=== PATIENT | female | born 1985 | race Caucasian/White ===

== ENCOUNTER 2023-01-05 12:00 | Emergency (ER) | payer BC ==
[~2023-01-05] VITALS: Ht 157.5 cm; Wt 89.8 kg
[~2023-01-05 12:00] MED LIST: ALBU90OI INH; ALBU90OI61 INH; AMOX500 PO; AZIT250 PO; BENZ100A PO; CEPH500 PO; CETYLOZ PO; CODGUAEL PO; CYCL10 PO; ERYT.5TO OS; FAMO40 PO; HYDACE5 PO; IBUP600 PO; IBUP800 PO; MOMENI; NAPR500 PO; NAPR550 PO; NUVARING; ONDA4 PO; ONDA8ODT MM; PHENA200 PO; PRED10 PO; PRED20 PO; PROM25 PO; PSEU120ER PO; RXCODGUASY PO; RXONDA4ODT MM; SULTRIDS PO
[2023-01-05] MEDS ORDERED: DULO60 PO (12:18)
[2023-01-05 13:04] LABS: Source, Urine Clean Catch
[2023-01-05 13:08] LABS: BASOPHILS ABSOLUTE AUTO 0.02 K/mm3 (0.00-0.23); BASOPHILS PERCENT AUTO 0 % (0-2); EOSINOPHILS ABSOLUTE AUTO 0.04 K/mm3 (0.00-0.68); EOSINOPHILS PERCENT AUTO 1 % (0-6); Hematocrit 36.2 % (33.0-51.0); Hemoglobin 12.8 g/dL (11.5-16.0); IMMATURE GRAN ABSOLUTE AUTO 0.03 K/mm3 (0.00-0.10); IMMATURE GRAN PERCENT AUTO 0 % (0-1); LYMPHOCYTES ABSOLUTE AUTO 2.01 K/mm3 (0.84-5.20); LYMPHOCYTES PERCENT AUTO 23 % (21-46); MONOCYTES ABSOLUTE AUTO 0.57 K/mm3 (0.16-1.47); MONOCYTES PERCENT AUTO 7 % (4-13); Mean Corpuscular HGB 32.7 pg (26.0-34.0); Mean Corpuscular HGB Conc 35.4 g/dL (31.5-36.5); Mean Corpuscular Volume 92 fL (80-100); NEUTROPHILS ABSOLUTE AUTO 5.93 K/mm3 (1.96-9.15); NEUTROPHILS PERCENT AUTO 69 % (41-73); RDW Coefficient Variation 11.6 % (11.7-14.2); RDW Standard Deviation 39.3 fL (35.1-46.3); Red Blood Cell Count 3.92 M/mm3 (3.80-5.20)
[2023-01-05 13:14] LABS: Mean Platelet Volume 10.7 fL (9.1-12.4); Platelet Count 243 K/mm3 (150-400)
[2023-01-05 13:18] LABS: Bilirubin, Urine Neg (Neg); Blood, Urine 5+ (Neg); Color, Urine Yellow (P-Yellow); Glucose Qualitative, Urine Neg (Neg); Ketones, Urine Neg (Neg); Leukocyte Esterase, Urine Neg (Neg); Nitrite, Urine Neg (Neg); Protein, Urine 1+ (Neg); Specific Gravity, Urine 1.015 (1.003-1.022); Urobilinogen, Urine NORM (Normal)
[2023-01-05 13:22] LABS: Albumin/Globulin Ratio 1.1 (0.8-1.8); Bilirubin, Total 0.6 mg/dL (0.1-1.0); Bun/Creatinine Ratio 15.9 (12.0-20.0); Calcium, Blood 8.8 mg/dL (8.5-10.1); Creatinine, Blood 0.5 mg/dL (0.40-1.00); Globulin, Blood 3.5 g/dL (2.2-4.0); Potassium, Blood 3.7 mmol/L (3.5-5.5); Total Protein, Blood 7.5 g/dL (6.4-8.2)
[2023-01-05 13:38] LABS: Appearance, Urine Hazy (Clear)
[2023-01-05 13:39] LABS: Bacteria Rare /hpf; Squamous Epithelial Cells Few /hpf (Few); White Blood Cells, Urine Not Seen /hpf (0-5)
== END 2023-01-05 14:35 | disposition home or self-care (01) ==
LOC: ER 12:00
PROVIDERS: Physician Assistant
DX: O03.9 Complete or unspecified spontaneous abortion without complication (principal); Z88.5 Allergy status to narcotic agent; Z79.899 Other long term (current) drug therapy
CPT/HCPCS: 36415; 76801; 76817; 80053; 81001; 84702; 85025; 86900; 86901

== ENCOUNTER 2023-01-16 06:07 | Day surgery (SDC) | payer BC ==
[~2023-01-16] VITALS: Ht 160 cm; Wt 91.2 kg
[~2023-01-16 06:07] MED LIST changes: +Atarax10 MG PO; +DULO60 PO
[2023-01-16] MEDS ORDERED: DOXYCYCLINE HY200 MG PO (06:56)
[2023-01-16 10:34] LABS: BASOPHILS ABSOLUTE AUTO 0.02 K/mm3 (0.00-0.23); BASOPHILS PERCENT AUTO 0 % (0-2); EOSINOPHILS ABSOLUTE AUTO 0.02 K/mm3 (0.00-0.68); EOSINOPHILS PERCENT AUTO 0 % (0-6); Hematocrit 29.5 % (33.0-51.0); Hemoglobin 10.3 g/dL (11.5-16.0); IMMATURE GRAN ABSOLUTE AUTO 0.07 K/mm3 (0.00-0.10); IMMATURE GRAN PERCENT AUTO 1 % (0-1); LYMPHOCYTES ABSOLUTE AUTO 0.74 K/mm3 (0.84-5.20); LYMPHOCYTES PERCENT AUTO 6 % (21-46); MONOCYTES PERCENT AUTO 2 % (4-13); Mean Corpuscular HGB Conc 34.9 g/dL (31.5-36.5); Mean Corpuscular Volume 95 fL (80-100); Mean Platelet Volume 10.4 fL (9.1-12.4); NEUTROPHILS ABSOLUTE AUTO 11.53 K/mm3 (1.96-9.15); NEUTROPHILS PERCENT AUTO 92 % (41-73); Platelet Count 206 K/mm3 (150-400); RDW Coefficient Variation 11.8 % (11.7-14.2); Red Blood Cell Count 3.12 M/mm3 (3.80-5.20); White Blood Cell Count 12.58 K/mm3 (4.00-11.30)
--- NOTE | 2023-01-16 13:22 | NUR ---
ASSISTED PT UP TO BATHROOM, VOID 100CC SELF PERICARE DONE PT BACK TO BED TOLERATED GOOD FELT A LITTLE WINDED
--- NOTE | 2023-01-16 14:25 | NUR ---
1919 DISCHARGE INSTRUCTIONS REVIEWED, QUESTIONS ANSWERED, PT TO F/U NEXT WEEK FOR LAB WORK AND 2 WEEKS FOR OFFICE VISIT. PT AMBULATED OUT TO CAR WITH RN AND FAMILY
== END 2023-01-16 23:59 | disposition home or self-care (01) ==
LOC: ORSCSDS 06:07 → ORSCMMR 06:08 → ORSCSDS 07:30 → BC 09:47 → ORSCSDS 14:10 → BC 14:20 → ORSCSDS 14:20
PROVIDERS: Obstetrics & Gynecology
PROC: 10D07Z6 Extraction of Products of Conception, Vacuum, Via Natural or Artificial Opening (ICD-10-PCS; principal; 2023-01-16 07:30)
DX: O01.9 Hydatidiform mole, unspecified (principal); E78.5 Hyperlipidemia, unspecified; F17.210 Nicotine dependence, cigarettes, uncomplicated; F41.8 Other specified anxiety disorders; E66.9 Obesity, unspecified; Z68.35 Body mass index [BMI] 35.0-35.9, adult; Z79.899 Other long term (current) drug therapy
CPT/HCPCS: 36415; 76998; 84702; 85025; 86850; 86900; 86901; 88305; A9270; J1100; J1720; J1885; J2210; J2250; J2405; J2590; J2704; J3010; J7120

== ENCOUNTER → 2025-01-31 | Outpatient (CLI) | payer SELFPAY ==
[~2025-01-31] MED LIST changes: +DOXYCYCLINE HY200 MG PO
[2025-02-09 10:39] LABS: HPV HIGH RISK BY TMA Not Detected; HPV SOURCE Cervical
== END | disposition home or self-care (01) ==
LOC: LAB 09:41 → LAB SHORT 09:41
PROVIDERS: Advanced Practice Midwife
DX: Z01.419 Encounter for gynecological examination (general) (routine) without abnormal findings (principal)
CPT/HCPCS: 87624; G0123